=== PATIENT | female | born 1945 | race Caucasian/White ===

== ENCOUNTER 2017-06-23 08:26 | Day surgery (SDC) | payer MEDICARE, OTHER ==
[~2017-06-23] VITALS: Ht 157.5 cm; Wt 47.3 kg
[~2017-06-23 08:26] MED LIST: Cipro500 MG PO; FLUT44OIA INH; Flagyl250 MG PO; Keflex500 MG PO; LEVSOD100 PO; Norco 5-325 Ta1 EACH PO; PROG100 PO; Zofran Odt4 MG SL
== END 2017-06-23 11:03 | disposition home or self-care (01) ==
LOC: ORSCSDS 08:26
PROVIDERS: Internal Medicine Gastroenterology
PROC: 0DBK8ZX Excision of Ascending Colon, Via Natural or Artificial Opening Endoscopic, Diagnostic (ICD-10-PCS; principal; 2017-06-23 09:45)
DX: Z12.11 Encounter for screening for malignant neoplasm of colon (principal); D12.2 Benign neoplasm of ascending colon; K57.30 Diverticulosis of large intestine without perforation or abscess without bleeding; K63.89 Other specified diseases of intestine; E03.9 Hypothyroidism, unspecified; K64.8 Other hemorrhoids; Z79.899 Other long term (current) drug therapy
CPT/HCPCS: 88305; J7120

== ENCOUNTER 2018-01-11 06:15 | Day surgery (SDC) | payer MEDICARE, OTHER ==
[~2018-01-11] VITALS: Ht 157.5 cm; Wt 48.1 kg
[2018-01-11] MEDS ORDERED: GUAI600T33 (06:38)
[2018-01-11] MEDS ORDERED: AMOCLA500 (06:38)
== END 2018-01-11 08:35 | disposition home or self-care (01) ==
LOC: ORSCSDS 06:15
PROVIDERS: Ophthalmology
PROC: 08RJ3JZ Replacement of Right Lens with Synthetic Substitute, Percutaneous Approach (ICD-10-PCS; principal; 2018-01-11 07:30)
DX: H25.11 Age-related nuclear cataract, right eye (principal); J45.909 Unspecified asthma, uncomplicated; E03.9 Hypothyroidism, unspecified; Z79.899 Other long term (current) drug therapy
CPT/HCPCS: J2250; V2632

== ENCOUNTER 2020-11-23 09:07 | Emergency (ER) | payer OTHER ==
[~2020-11-23] VITALS: Ht 157.5 cm; Wt 49.0 kg
[~2020-11-23 09:07] MED LIST changes: +AMOCLA500; +GUAI600T33
[2020-11-23 10:30] LABS: Source, Urine Clean Catch
[2020-11-23 10:34] LABS: BASOPHILS ABSOLUTE AUTO 0.03 K/mm3 (0.00-0.23); BASOPHILS PERCENT AUTO 0 % (0-2); EOSINOPHILS ABSOLUTE AUTO 0.31 K/mm3 (0.00-0.68); EOSINOPHILS PERCENT AUTO 4 % (0-6); Hematocrit 38.5 % (33.0-51.0); Hemoglobin 12.5 g/dL (11.5-16.0); IMMATURE GRAN ABSOLUTE AUTO 0.02 K/mm3 (0.00-0.10); IMMATURE GRAN PERCENT AUTO 0 % (0-1); LYMPHOCYTES ABSOLUTE AUTO 1.31 K/mm3 (0.84-5.20); LYMPHOCYTES PERCENT AUTO 15 % (21-46); MONOCYTES ABSOLUTE AUTO 0.68 K/mm3 (0.16-1.47); MONOCYTES PERCENT AUTO 8 % (4-13); Mean Corpuscular HGB 29.8 pg (26.0-34.0); Mean Corpuscular HGB Conc 32.5 g/dL (31.5-36.5); Mean Corpuscular Volume 92 fL (80-100); Mean Platelet Volume 9.4 fL (9.1-12.4); NEUTROPHILS ABSOLUTE AUTO 6.53 K/mm3 (1.96-9.15); NEUTROPHILS PERCENT AUTO 74 % (41-73); Platelet Count 208 K/mm3 (150-400); RDW Coefficient Variation 13.2 % (11.7-14.2); RDW Standard Deviation 45.1 fL (35.1-46.3); Red Blood Cell Count 4.19 M/mm3 (3.80-5.20); White Blood Cell Count 8.88 K/mm3 (4.00-11.30)
[2020-11-23 10:34] LABS: Bilirubin, Urine Neg (Neg); Blood, Urine 2+ (Neg); Glucose Qualitative, Urine Neg (Neg); Ketones, Urine Neg (Neg); Leukocyte Esterase, Urine Neg (Neg); Nitrite, Urine Neg (Neg); Protein, Urine Neg (Neg); Specific Gravity, Urine 1.005 (1.003-1.022); Urobilinogen, Urine NORM (Normal)
[2020-11-23 10:43] LABS: Appearance, Urine Clear (Clear); Bacteria Rare /hpf; Color, Urine Yellow (P-Yellow); Red Blood Cells, Urine 0-2 /hpf (0-2); Squamous Epithelial Cells Few /hpf (Few); White Blood Cells, Urine 0-2 /hpf (0-5)
[2020-11-23 10:51] LABS: Alanine Aminotransfer (ALT/SGP 26 U/L (12-78); Albumin/Globulin Ratio 1.3 (0.8-1.8); Alk Phos 41 U/L (50-136); Anion Gap 7 mmol/L (6-16); Aspartate Aminotrans (AST/SGOT 19 U/L (12-37); Bilirubin, Total 0.5 mg/dL (0.1-1.0); Blood Urea Nitrogen 9 mg/dL (8-24); CO2, Blood 27 mmol/L (21-32); Chloride, Blood 107 mmol/L (98-108); Creatinine, Blood 0.53 mg/dL (0.40-1.00); Globulin, Blood 3.1 g/dL (2.2-4.0); Glomerular Filtration Rate >60 (60-); Glucose, Blood 101 mg/dL (70-99); Sodium, Blood 141 mmol/L (136-145); Total Protein, Blood 7.1 g/dL (6.4-8.2)
[2020-11-23] MEDS ORDERED: AMOCLA875 PO (11:27)
[2020-11-23] MEDS ORDERED: HYDR1TAB94 PO (11:38)
== END 2020-11-23 12:06 | disposition home or self-care (01) ==
LOC: ER 09:07
PROVIDERS: Physician Assistant
DX: K57.32 Diverticulitis of large intestine without perforation or abscess without bleeding (principal); Z79.899 Other long term (current) drug therapy
CPT/HCPCS: 36415; 74176; 80053; 81001; 83690; 85025; 99284-25; A9270

== ENCOUNTER → 2022-07-16 | Outpatient (CLI) | payer OTHER ==
[~2022-07-16] MED LIST changes: +AMOCLA875 PO; +HYDR1TAB94 PO
== END ==
LOC: LAB 09:57 → LAB SHORT 09:57
DX: R10.9 Unspecified abdominal pain (principal)
CPT/HCPCS: 87086

== ENCOUNTER → 2023-09-24 | Outpatient (CLI) | payer OTHER ==
[2023-09-24 11:09] LABS: BASOPHILS ABSOLUTE AUTO 0.03 K/mm3 (0.00-0.23); BASOPHILS PERCENT AUTO 0 % (0-2); EOSINOPHILS ABSOLUTE AUTO 0.29 K/mm3 (0.00-0.68); EOSINOPHILS PERCENT AUTO 4 % (0-6); Hematocrit 37.4 % (33.0-51.0); Hemoglobin 12.1 g/dL (11.5-16.0); IMMATURE GRAN ABSOLUTE AUTO 0.01 K/mm3 (0.00-0.10); IMMATURE GRAN PERCENT AUTO 0 % (0-1); LYMPHOCYTES ABSOLUTE AUTO 1.31 K/mm3 (0.84-5.20); LYMPHOCYTES PERCENT AUTO 16 % (21-46); MONOCYTES ABSOLUTE AUTO 0.51 K/mm3 (0.16-1.47); MONOCYTES PERCENT AUTO 6 % (4-13); Mean Corpuscular HGB 29.1 pg (26.0-34.0); Mean Corpuscular HGB Conc 32.4 g/dL (31.5-36.5); Mean Corpuscular Volume 90 fL (80-100); Mean Platelet Volume 9.8 fL (9.1-12.4); NEUTROPHILS ABSOLUTE AUTO 6.18 K/mm3 (1.96-9.15); NEUTROPHILS PERCENT AUTO 74 % (41-73); Platelet Count 198 K/mm3 (150-400); RDW Coefficient Variation 13.9 % (11.7-14.2); RDW Standard Deviation 45.4 fL (35.1-46.3); Red Blood Cell Count 4.16 M/mm3 (3.80-5.20); White Blood Cell Count 8.33 K/mm3 (4.00-11.30)
[2023-09-24 11:15] LABS: Albumin, Blood 3.5 g/dL (3.4-5.0); Albumin/Globulin Ratio 0.9 (0.8-1.8); Bilirubin, Total 0.5 mg/dL (0.1-1.0); Bun/Creatinine Ratio 8.6 (12.0-20.0); Calcium, Blood 8.9 mg/dL (8.5-10.1); Creatinine, Blood 0.58 mg/dL (0.40-1.00); Globulin, Blood 3.7 g/dL (2.2-4.0); Potassium, Blood 3.5 mmol/L (3.5-5.5); Total Protein, Blood 7.2 g/dL (6.4-8.2)
== END ==
LOC: LAB 11:02 → LAB SHORT 11:02
PROVIDERS: Family Medicine
DX: R10.9 Unspecified abdominal pain (principal); R42 Dizziness and giddiness
CPT/HCPCS: 80053; 83605; 85025

== ENCOUNTER → 2023-09-27 | Outpatient (CLI) | payer OTHER ==
[2023-09-27 12:46] LABS: Albumin, Blood 3.3 g/dL (3.4-5.0); Albumin/Globulin Ratio 0.9 (0.8-1.8); Bilirubin, Total 0.3 mg/dL (0.1-1.0); Bun/Creatinine Ratio 7.9 (12.0-20.0); Calcium, Blood 8.8 mg/dL (8.5-10.1); Creatinine, Blood 0.63 mg/dL (0.40-1.00); Globulin, Blood 3.5 g/dL (2.2-4.0); Potassium, Blood 3.5 mmol/L (3.5-5.5); Total Protein, Blood 6.8 g/dL (6.4-8.2)
[2023-09-27 12:49] LABS: BASOPHILS ABSOLUTE AUTO 0.03 K/mm3 (0.00-0.23); BASOPHILS PERCENT AUTO 0 % (0-2); Hemoglobin 12.2 g/dL (11.5-16.0); LYMPHOCYTES ABSOLUTE AUTO 1.07 K/mm3 (0.84-5.20); LYMPHOCYTES PERCENT AUTO 13 % (21-46); MONOCYTES ABSOLUTE AUTO 0.81 K/mm3 (0.16-1.47); MONOCYTES PERCENT AUTO 10 % (4-13); Mean Corpuscular HGB 29.4 pg (26.0-34.0); Mean Corpuscular Volume 89 fL (80-100); Mean Platelet Volume 9.8 fL (9.1-12.4); Platelet Count 201 K/mm3 (150-400); RDW Coefficient Variation 13.9 % (11.7-14.2); RDW Standard Deviation 45.2 fL (35.1-46.3); Red Blood Cell Count 4.15 M/mm3 (3.80-5.20); White Blood Cell Count 8.48 K/mm3 (4.00-11.30)
[2023-09-27 13:00] LABS: EOSINOPHILS ABSOLUTE AUTO 0.21 K/mm3 (0.00-0.68); EOSINOPHILS PERCENT AUTO 3 % (0-6); IMMATURE GRAN ABSOLUTE AUTO 0.03 K/mm3 (0.00-0.10); IMMATURE GRAN PERCENT AUTO 0 % (0-1); NEUTROPHILS ABSOLUTE AUTO 6.33 K/mm3 (1.96-9.15); NEUTROPHILS PERCENT AUTO 75 % (41-73)
== END ==
LOC: LAB SHORT 12:31 → LAB 12:31
PROVIDERS: Internal Medicine
DX: K57.92 Diverticulitis of intestine, part unspecified, without perforation or abscess without bleeding (principal)
CPT/HCPCS: 80053; 83690; 85025

== ENCOUNTER → 2023-09-27 | Outpatient (CLI) | payer OTHER ==
[2023-09-28 10:42] LABS: C DIFFICILE DNA POSITIVE (Negative)
== END ==
LOC: LAB SHORT 17:28 → LAB 17:28
PROVIDERS: Internal Medicine
DX: K57.92 Diverticulitis of intestine, part unspecified, without perforation or abscess without bleeding (principal)
CPT/HCPCS: 87324; 87493

== ENCOUNTER → 2023-10-26 | Outpatient (CLI) | payer OTHER ==
[2023-10-29 06:13] LABS: ADENOVIRUS F 40/41 Not Detected (Not Detected); ASTROVIRUS Not Detected (Not Detected); C DIFFICILE TOXIN A/B Detected (Not Detected); CRYPTOSPORIDIUM Not Detected (Not Detected); CYCLOSPORA CAYETANENSIS Not Detected (Not Detected); ENTAMOEBA HISTOLYTICA Not Detected (Not Detected); ENTEROAGGREGATIVE E COLI Not Detected (Not Detected); ENTEROPATHOGENIC E COLI Not Detected (Not Detected); ENTEROTOXIGENIC E COLI Not Detected (Not Detected); GIARDIA LAMBLIA Not Detected (Not Detected); NOROVIRUS GI/GII Not Detected (Not Detected); PLESIOMONAS SHIGELLOIDES Not Detected (Not Detected); ROTAVIRUS A Not Detected (Not Detected); SALMONELLA Not Detected (Not Detected); SAPOVIRUS Not Detected (Not Detected); SHIGA-TOXIN-PRODUCING E COLI Not Detected (Not Detected); SHIGELLA/ENTEROINVASIVE E COLI Not Detected (Not Detected); VIBRIO Not Detected (Not Detected); VIBRIO CHOLERAE Not Detected (Not Detected); YERSINIA ENTEROCOLITICA Not Detected (Not Detected)
== END | disposition home or self-care (01) ==
LOC: LAB SHORT 13:16 → LAB 13:16
PROVIDERS: Physician Assistant
DX: A04.71 Enterocolitis due to Clostridium difficile, recurrent (principal)
CPT/HCPCS: 87507

== ENCOUNTER 2024-12-19 18:06 | Inpatient (IN) | payer OTHER ==
[~2024-12-19] VITALS: Ht 157.5 cm; Wt 48.6 kg
[2024-12-19 19:32] LABS: BASOPHILS ABSOLUTE AUTO 0.03 K/mm3 (0.00-0.23); BASOPHILS PERCENT AUTO 0 % (0-2); EOSINOPHILS ABSOLUTE AUTO 0.16 K/mm3 (0.00-0.68); EOSINOPHILS PERCENT AUTO 2 % (0-6); Hematocrit 41.9 % (33.0-51.0); Hemoglobin 13.9 g/dL (11.5-16.0); IMMATURE GRAN ABSOLUTE AUTO 0.01 K/mm3 (0.00-0.10); IMMATURE GRAN PERCENT AUTO 0 % (0-1); LYMPHOCYTES ABSOLUTE AUTO 1.86 K/mm3 (0.84-5.20); LYMPHOCYTES PERCENT AUTO 21 % (21-46); MONOCYTES ABSOLUTE AUTO 0.48 K/mm3 (0.16-1.47); MONOCYTES PERCENT AUTO 5 % (4-13); Mean Corpuscular HGB Conc 33.2 g/dL (31.5-36.5); Mean Corpuscular Volume 89 fL (80-100); NEUTROPHILS ABSOLUTE AUTO 6.40 K/mm3 (1.96-9.15); NEUTROPHILS PERCENT AUTO 72 % (41-73); NRBC ABSOLUTE 0.00 K/mm3 (0.00-0.02); NRBC Auto 0.0 /100 WBC (0.0-0.2); Platelet Count 368 K/mm3 (150-400); RDW Coefficient Variation 13.2 % (11.7-14.2); RDW Standard Deviation 43.5 fL (35.1-46.3)
[2024-12-19 20:00] LABS: Alanine Aminotransfer (ALT/SGP 15.0 U/L (12-78); Albumin, Blood 3.5 g/dL (3.4-5.0); Albumin/Globulin Ratio 0.8 (0.8-1.8); Anion Gap 15.0 mmol/L (3-11); Aspartate Aminotrans (AST/SGOT 16.0 U/L (12-37); Bilirubin, Total 0.4 mg/dL (0.1-1.0); Blood Urea Nitrogen 7.0 mg/dL (8-24); CO2, Blood 21.0 mmol/L (21-32); Calcium, Blood 8.9 mg/dL (8.5-10.1); Chloride, Blood 100.0 mmol/L (98-108); Creatinine, Blood 0.53 mg/dL (0.40-1.00); Globulin, Blood 4.2 g/dL (2.2-4.0); Glucose, Blood 123.0 mg/dL (70-99); Potassium, Blood 3.7 mmol/L (3.5-5.5); Sodium, Blood 132.0 mmol/L (136-145); Total Protein, Blood 7.7 g/dL (6.4-8.2)
[2024-12-19 21:14] LABS: Source, Urine Clean Catch
[2024-12-19 21:22] LABS: Bilirubin, Urine Neg (Neg); Glucose Qualitative, Urine Neg (Neg); Ketones, Urine 3+ (Neg); Leukocyte Esterase, Urine Neg (Neg); Protein, Urine 1+ (Neg); Specific Gravity, Urine 1.010 (1.003-1.022); Urobilinogen, Urine NORM (Normal)
[2024-12-19 21:27] LABS: Color, Urine Pale Yellow (P-Yellow)
[2024-12-19 21:28] LABS: White Blood Cells, Urine 0-2 /hpf (0-5)
[2024-12-19] MEDS ORDERED: Morphine Sulfate 4 MG/1 ML Injection IV ONE (23:00)
[2024-12-19] MEDS ORDERED: Piperacillin/Tazobactam Sod 4.5 GM in NS 100 ML IV ONE (23:00)
[2024-12-19] MEDS ORDERED: FentaNYL Citrate 50 MCG/ML 2 ML Injection IV ONE (23:00)
[2024-12-19] MEDS ORDERED: Ondansetron HCl 2 MG / ML 2ML Vial IV ONE (23:00)
[2024-12-19] MEDS ORDERED: NS 1,000 ML IV SCH (23:00)
[2024-12-20] VITALS (18 sets, daily range): BP systolic 122–161; BP diastolic 63–130
[2024-12-20] MEDS ORDERED: NS 1,000 ML IV ONE (00:15)
[2024-12-20] MEDS ORDERED: FentaNYL Citrate 50 MCG/ML 2 ML Injection IV PRN ×3 (00:15→12:40)
[2024-12-20] MEDS ORDERED: Ondansetron HCl 2 MG / ML 2ML Vial IV PRN (00:15)
[2024-12-20] MEDS ORDERED: FOSAMAX70 MG PO (03:56)
[2024-12-20 04:42] LABS: BASOPHILS ABSOLUTE AUTO 0.02 K/mm3 (0.00-0.23); BASOPHILS PERCENT AUTO 0 % (0-2); EOSINOPHILS ABSOLUTE AUTO 0.01 K/mm3 (0.00-0.68); EOSINOPHILS PERCENT AUTO 0 % (0-6); Hematocrit 39.3 % (33.0-51.0); Hemoglobin 12.3 g/dL (11.5-16.0); IMMATURE GRAN ABSOLUTE AUTO 0.01 K/mm3 (0.00-0.10); IMMATURE GRAN PERCENT AUTO 0 % (0-1); LYMPHOCYTES ABSOLUTE AUTO 0.94 K/mm3 (0.84-5.20); LYMPHOCYTES PERCENT AUTO 16 % (21-46); MONOCYTES ABSOLUTE AUTO 0.31 K/mm3 (0.16-1.47); MONOCYTES PERCENT AUTO 5 % (4-13); Mean Corpuscular HGB Conc 31.3 g/dL (31.5-36.5); NEUTROPHILS ABSOLUTE AUTO 4.67 K/mm3 (1.96-9.15); NEUTROPHILS PERCENT AUTO 78 % (41-73); NRBC ABSOLUTE 0.00 K/mm3 (0.00-0.02); NRBC Auto 0.0 /100 WBC (0.0-0.2); Platelet Count 273 K/mm3 (150-400); RDW Coefficient Variation 13.4 % (11.7-14.2); RDW Standard Deviation 46.5 fL (35.1-46.3)
[2024-12-20 05:02] LABS: Mean Corpuscular Volume 94 fL (80-100)
[2024-12-20 05:22] LABS: Alanine Aminotransfer (ALT/SGP 13.0 U/L (12-78); Albumin, Blood 3.0 g/dL (3.4-5.0); Albumin/Globulin Ratio 0.9 (0.8-1.8); Anion Gap 14.0 mmol/L (3-11); Aspartate Aminotrans (AST/SGOT 11.0 U/L (12-37); Bilirubin, Total 0.2 mg/dL (0.1-1.0); Blood Urea Nitrogen 6.0 mg/dL (8-24); CO2, Blood 21.0 mmol/L (21-32); Calcium, Blood 7.8 mg/dL (8.5-10.1); Chloride, Blood 105.0 mmol/L (98-108); Creatinine, Blood 0.53 mg/dL (0.40-1.00); Globulin, Blood 3.4 g/dL (2.2-4.0); Glucose, Blood 117.0 mg/dL (70-99); Potassium, Blood 3.7 mmol/L (3.5-5.5); Sodium, Blood 136.0 mmol/L (136-145); Total Protein, Blood 6.4 g/dL (6.4-8.2)
--- NOTE | 2024-12-20 06:20 | NUR ---
SHIFT SUMMARY PT ER ADMIT THIS SHIFT FOR DIVERTICULITIS. PT REPORTS PAIN, N/V FOR THE PAST TWO DAYS. SHE REPORTS HER LAST BM WAS YESTERDAY BUT WAS VERY SMALL. SHE ENDORSES ABD TENDERNESS, AND INTERMITTENT SHARP PAINS THAT SHE REPORTS "COMES AND GOES". PAIN MANAGED PER EMAR. PT NPO, IVF INFUSING. PT AWAITING SURGICAL CONSULT AT THIS TIME. VITALS STABLE. ADMISSION COMPLETE. BED IN LOWEST POSITION, CALL LIGHT WITHIN REACH.
[2024-12-20] MEDS ORDERED: Fluticasone 0.05% Nasal Spray SCH (09:00)
--- NOTE | 2024-12-20 10:58 | NUR ---
[facility]
--- NOTE | 2024-12-20 11:25 | NUR ---
CENTRAL MONITOR TELE REMOVED SO DR BALL COULD BRITTENE ABD AND PREP COULD BE COMPLETED IN PRE-OP.
[2024-12-20] MEDS ORDERED: HYDROmorphone HCl/Pf 1MG SYR ONE (11:33)
[2024-12-20] MEDS ORDERED: Rocuronium Bromide 10 MG/ML 5ML Injection IV ONE ×2 (11:34→12:55)
[2024-12-20] MEDS ORDERED: Ampicillin Sod/Sulbactam Sod 3 GM in NS 100 ML IV SCH ×2 (11:35→20:00)
[2024-12-20] MEDS ORDERED: Bupivacaine 0.5% HCl 5 MG/ML 30MLVIAL ONE (11:38)
[2024-12-20] MEDS ORDERED: Phenylephrine HCl 100 MCG/ML-NS 10MLSYR (1MG/10ML) ONE (12:04)
[2024-12-20] MEDS ORDERED: HYDROmorphone HCl/Pf 1MG SYR IV PRN ×3 (12:35→16:30)
[2024-12-20] MEDS ORDERED: Metoclopramide HCl 5MG / ML 2ML Vial IV PRN (12:40)
[2024-12-20] MEDS ORDERED: Albuterol 2.5 MG/3 ML VIAL INH PRN (12:40)
[2024-12-20] MEDS ORDERED: Sugammadex Sodium 200 MG/2ML SDV (100 MG/ML) ONE (14:54)
[2024-12-20] MEDS ORDERED: FentaNYL Citrate 50 MCG/ML 2 ML Injection ONE (15:30)
--- NOTE | 2024-12-20 16:00 | NUR ---
POST OP RETURN TO SURGICAL UNIT VIA GOURNEY, SLID TO BED. DROWSY BUT PAINFUL. ABD SOFT & TENDER TO GENTLE TOUCH w/ ELLY MIDLINE w/ ~ 1 CM RED SPOT. L ABD w/ OSTOMY, BROWN LQ OUTPUT. NGT TO LIS, NO OUTPUT NOTED. TELE IN PLACE. VILLAVICENCIO TO GRAVITY, YELLOW URINE. LUNGS CLEAR, RA. TO SIDE.
[2024-12-20 22:12] LABS: Carcinoembryonic Antigen 0.8 ng/mL (0.0-3.0)
--- NOTE | 2024-12-21 04:34 | NUR ---
SHIFT SUMMARY PT S/P HEMICOLLECTOMY WITH OSTOMY PLACEMENT. NG PLACED IN OR. MIDLINE INCISION WITH ELLY, COMPRESSED. OSTOMY PRODUCING LIQUID BROWN STOOL. PT VERY PAINFUL WITH MOVEMENT AND COUGHING. PAIN MANAGED PER EMAR. NG WITH MINIMAL OUTPUT OVERNIGHT. IVF INFUSING, ANTIBIOTICS PER ORDERS. VITALS STABLE, PLAN OF CARE UNCHANGED. BED IN LOWEST POSITION, CALL LIGHT WITHIN REACH.
[2024-12-21 05:04] VITALS: BP 129/60
[2024-12-21 05:54] LABS: BASOPHILS ABSOLUTE AUTO 0.01 K/mm3 (0.00-0.23); BASOPHILS PERCENT AUTO 0 % (0-2); EOSINOPHILS ABSOLUTE AUTO 0.01 K/mm3 (0.00-0.68); EOSINOPHILS PERCENT AUTO 0 % (0-6); Hematocrit 35.1 % (33.0-51.0); Hemoglobin 11.5 g/dL (11.5-16.0); IMMATURE GRAN ABSOLUTE AUTO 0.03 K/mm3 (0.00-0.10); IMMATURE GRAN PERCENT AUTO 0 % (0-1); LYMPHOCYTES ABSOLUTE AUTO 0.99 K/mm3 (0.84-5.20); LYMPHOCYTES PERCENT AUTO 12 % (21-46); MONOCYTES ABSOLUTE AUTO 0.71 K/mm3 (0.16-1.47); MONOCYTES PERCENT AUTO 9 % (4-13); Mean Corpuscular HGB Conc 32.8 g/dL (31.5-36.5); Mean Corpuscular Volume 92 fL (80-100); NEUTROPHILS ABSOLUTE AUTO 6.65 K/mm3 (1.96-9.15); NEUTROPHILS PERCENT AUTO 79 % (41-73); NRBC ABSOLUTE 0.00 K/mm3 (0.00-0.02); NRBC Auto 0.0 /100 WBC (0.0-0.2); Platelet Count 322 K/mm3 (150-400); RDW Coefficient Variation 13.9 % (11.7-14.2); RDW Standard Deviation 47.4 fL (35.1-46.3)
[2024-12-21 06:56] LABS: Alanine Aminotransfer (ALT/SGP 14.0 U/L (12-78); Albumin, Blood 2.5 g/dL (3.4-5.0); Albumin/Globulin Ratio 0.8 (0.8-1.8); Anion Gap 10.0 mmol/L (3-11); Aspartate Aminotrans (AST/SGOT 22.0 U/L (12-37); Bilirubin, Total 0.3 mg/dL (0.1-1.0); Blood Urea Nitrogen 6.0 mg/dL (8-24); CO2, Blood 25.0 mmol/L (21-32); Calcium, Blood 7.5 mg/dL (8.5-10.1); Chloride, Blood 107.0 mmol/L (98-108); Creatinine, Blood 0.56 mg/dL (0.40-1.00); Globulin, Blood 3.0 g/dL (2.2-4.0); Glucose, Blood 105.0 mg/dL (70-99); Potassium, Blood 4.2 mmol/L (3.5-5.5); Sodium, Blood 138.0 mmol/L (136-145); Total Protein, Blood 5.5 g/dL (6.4-8.2)
[2024-12-21 07:05] VITALS: BP 157/75
--- NOTE | 2024-12-21 08:09 | NUR ---
NGT REMOVED BY DR BALL. ICE WATER GIVEN & ENCOURAGED TO TAKE IN SIPS SLOWLY.
[2024-12-21] MEDS ORDERED: Enoxaparin 40 MG/0.4 ML SYR SC SCH (09:00)
[2024-12-21] MEDS ORDERED: Ampicillin Sod/Sulbactam Sod 3 GM in NS 100 ML IV SCH (14:00)
[2024-12-21 16:11] VITALS: BP 115/56
--- NOTE | 2024-12-21 18:37 | NUR ---
SHIFT SUMMARY SHE WAS ABLE TO MEET ALL HER GOALS TODAY. USES IS W/O SPONT PROMPTING, UP TO CHAIR FOR ~ 2 HRS, & TOLERATING SIPS OF WATER. PAIN IS REASONABLY CONTROLLED. SLEEPS IN BETWEEN ACTIVITIES. PLEASANT & COOPERATIVE.
[2024-12-21 19:34] VITALS: BP 144/73
[2024-12-22 04:28] VITALS: BP 159/84
[2024-12-22 05:36] LABS: BASOPHILS ABSOLUTE AUTO 0.02 K/mm3 (0.00-0.23); BASOPHILS PERCENT AUTO 0 % (0-2); EOSINOPHILS ABSOLUTE AUTO 0.18 K/mm3 (0.00-0.68); EOSINOPHILS PERCENT AUTO 3 % (0-6); Hematocrit 33.0 % (33.0-51.0); Hemoglobin 10.8 g/dL (11.5-16.0); IMMATURE GRAN ABSOLUTE AUTO 0.02 K/mm3 (0.00-0.10); IMMATURE GRAN PERCENT AUTO 0 % (0-1); LYMPHOCYTES ABSOLUTE AUTO 0.98 K/mm3 (0.84-5.20); LYMPHOCYTES PERCENT AUTO 14 % (21-46); MONOCYTES ABSOLUTE AUTO 0.53 K/mm3 (0.16-1.47); MONOCYTES PERCENT AUTO 8 % (4-13); Mean Corpuscular HGB Conc 32.7 g/dL (31.5-36.5); Mean Corpuscular Volume 92 fL (80-100); NEUTROPHILS ABSOLUTE AUTO 5.22 K/mm3 (1.96-9.15); NEUTROPHILS PERCENT AUTO 75 % (41-73); NRBC ABSOLUTE 0.00 K/mm3 (0.00-0.02); NRBC Auto 0.0 /100 WBC (0.0-0.2); Platelet Count 296 K/mm3 (150-400); RDW Coefficient Variation 14.0 % (11.7-14.2); RDW Standard Deviation 47.8 fL (35.1-46.3)
--- NOTE | 2024-12-22 05:54 | NUR ---
NOC SUMMARY- PT PAIN MANAGED WELL. PT ABLE TO REST DURING SHIFT. NO STOOLING NOTED IN OSTOMY. VILLAVICENCIO DRAINING TO GRAVITY. ELLY IS COMPRESSED W/ SCANT SHADOWING. TOLERATING SIPS OF WATER ONLY. CALL LIGHT IN REACH.
[2024-12-22 06:12] LABS: Anion Gap 10.0 mmol/L (3-11); Blood Urea Nitrogen 5.0 mg/dL (8-24); CO2, Blood 25.0 mmol/L (21-32); Calcium, Blood 7.7 mg/dL (8.5-10.1); Chloride, Blood 105.0 mmol/L (98-108); Creatinine, Blood 0.49 mg/dL (0.40-1.00); Glucose, Blood 81.0 mg/dL (70-99); Magnesium, Blood 2.1 mg/dL (1.6-2.4); Phosphorus, Blood 1.0 mg/dL (2.5-4.9); Potassium, Blood 3.6 mmol/L (3.5-5.5); Sodium, Blood 136.0 mmol/L (136-145)
[2024-12-22 07:49] VITALS: BP 153/86
[2024-12-22] MEDS ORDERED: HYDROcodone 5-APAP 325 TAB PO PRN (08:25)
[2024-12-22] MEDS ORDERED: D5W-1/2NS KCl 20mEq 1,000 ML IV SCH (08:25)
[2024-12-22] MEDS ORDERED: Potassium Phosphate Dibasic 30 MM in Dextrose 5% 500 ML IV STA (08:30)
[2024-12-22] MEDS ORDERED: HYDROmorphone HCl/Pf 1MG SYR IV PRN (09:20)
--- NOTE | 2024-12-22 10:10 | NUR ---
PATIENT ALERT X4, FAMILY IN ROOM. COLOSTOMY PRODUCING SMALL AMOUT OF BROWN BROWN AND RED LIQUID STOOL, STOMA REMAINS BEEFY RED ELLY MIDLINE IS COMPRESSED WITH SLIGHT SHADING ON THE LEFT LOWER. VILLAVICENCIO DRAINING YELLOW URINE. PAIN MANAGED WITH PRN'S.
[2024-12-22] MEDS ORDERED: Potassium Phosphate Dibasic 15 MM in Dextrose 5% 250 ML IV SCH (13:30)
[2024-12-22 14:35] VITALS: BP 126/72
[2024-12-22 19:13] VITALS: BP 125/64
[2024-12-23 04:07] VITALS: BP 127/76
--- NOTE | 2024-12-23 04:33 | NUR ---
SHIFT SUMMARY; PATIENT SLEPT IN LONG INTERVALS, MEDICATED FOR PAIN TWICE. VILLAVICENCIO REMOVED EARLY THIS MORNING. COLOSTOMY WORKING WELL. IV FLUIDS D51/2NS WITH 20 MEQ AT 75/HR .
[2024-12-23 05:13] LABS: Anion Gap 5.0 mmol/L (3-11); Blood Urea Nitrogen 3.0 mg/dL (8-24); CO2, Blood 30.0 mmol/L (21-32); Calcium, Blood 7.5 mg/dL (8.5-10.1); Chloride, Blood 103.0 mmol/L (98-108); Creatinine, Blood 0.46 mg/dL (0.40-1.00); Glucose, Blood 116.0 mg/dL (70-99); Magnesium, Blood 2.1 mg/dL (1.6-2.4); Phosphorus, Blood 2.0 mg/dL (2.5-4.9); Potassium, Blood 4.1 mmol/L (3.5-5.5); Sodium, Blood 134.0 mmol/L (136-145)
[2024-12-23 07:35] VITALS: BP 134/74
[2024-12-23] MEDS ORDERED: Sodium Phosphate 15 MM in Dextrose 5% 250 ML IV STA (08:22)
[2024-12-23 14:44] VITALS: BP 109/76
--- NOTE | 2024-12-23 17:44 | NUR ---
SUMMARY- PT A/O X4, FORGETFUL TO DETAILS AND FUZZY FROM EFFECTS OF NARCOTIC MEDS- FAMILY IN ROOM ALL DAY ASSISTING PT WITH ADL'S. PT STATES INTERMITTANT PAIN IN ABD, CONTROLLED WITH NORCO 1, APPROX Q3-4 DURING THE DAY. PT ADVANCED TO REG DIET FOR LUNCH AND TOLERATING FOOD AND FLUIDS WELL. SAUD DC'D 0500, VOIDING WITHOUT DIFFICULTY. AMBULATED IN HALLWAY WALKER SBA, CIRCLED THE UNIT APPROX 4X THIS SHIFT. PT HAS CONT IVF RUNNING UNTIL FLUID INTAKE PICKS UP. STOMA APPEARS RED AND BEEFY. RELEASED AIR X2, AND 75ML OF LIQ BROWN BM. AREA AROUND LATERAL APPLIEANCE RED WITH BLISTER APPEARING UNDER THE ADHESIVE. ELLY DRAIN IN USE. WILL REPORT TO RUI BARKER
[2024-12-23 20:08] VITALS: BP 146/78
[2024-12-24 02:41] VITALS: BP 171/84
[2024-12-24 06:26] LABS: BASOPHILS ABSOLUTE AUTO 0.02 K/mm3 (0.00-0.23); BASOPHILS PERCENT AUTO 1 % (0-2); EOSINOPHILS ABSOLUTE AUTO 0.33 K/mm3 (0.00-0.68); EOSINOPHILS PERCENT AUTO 8 % (0-6); Hematocrit 31.3 % (33.0-51.0); Hemoglobin 10.2 g/dL (11.5-16.0); IMMATURE GRAN ABSOLUTE AUTO 0.01 K/mm3 (0.00-0.10); IMMATURE GRAN PERCENT AUTO 0 % (0-1); LYMPHOCYTES ABSOLUTE AUTO 0.92 K/mm3 (0.84-5.20); LYMPHOCYTES PERCENT AUTO 22 % (21-46); MONOCYTES ABSOLUTE AUTO 0.38 K/mm3 (0.16-1.47); MONOCYTES PERCENT AUTO 9 % (4-13); Mean Corpuscular HGB Conc 32.6 g/dL (31.5-36.5); Mean Corpuscular Volume 92 fL (80-100); NEUTROPHILS ABSOLUTE AUTO 2.56 K/mm3 (1.96-9.15); NEUTROPHILS PERCENT AUTO 61 % (41-73); NRBC ABSOLUTE 0.00 K/mm3 (0.00-0.02); NRBC Auto 0.0 /100 WBC (0.0-0.2); Platelet Count 327 K/mm3 (150-400); RDW Coefficient Variation 13.6 % (11.7-14.2); RDW Standard Deviation 46.0 fL (35.1-46.3)
--- NOTE | 2024-12-24 06:31 | NUR ---
SHIFT SUMMARY POD 4 SIGMOIDECTOMY/COLOSTOMY PLACEMENT. PT TOLERATING REGULAR DIET. REPORTS ABDOMINAL PAIN INCREASED THROUGHOUT SHIFT. MEDICATED PER EMAR AND AMBULATED IN HALLWAY. BOWEL TONES HYPERACTIVE WITH MODERATE ABD DISTENTION AT END OF SHIFT. PT PASSING FLATUS, MINIMAL LIQUID BROWN STOOL IN OSTOMY. PT A&O X4 BUT BECOMES CONFUSED AFTER ADMINISTRATION OF PAIN MEDICATION. REPORTS HEARING MUSIC AND RAIN AFTER RECEIVING PAIN MEDICATION. MIDLINE ELLY DRESSING UNCHANGED THROUGHOUT SHIFT. CALL LIGHT WITHIN REACH. CARE PLAN ONGOING.
[2024-12-24 06:51] LABS: Alanine Aminotransfer (ALT/SGP 14.0 U/L (12-78); Albumin, Blood 2.2 g/dL (3.4-5.0); Albumin/Globulin Ratio 0.7 (0.8-1.8); Anion Gap 8.0 mmol/L (3-11); Aspartate Aminotrans (AST/SGOT 16.0 U/L (12-37); Bilirubin, Total 0.2 mg/dL (0.1-1.0); Blood Urea Nitrogen 2.0 mg/dL (8-24); CO2, Blood 27.0 mmol/L (21-32); Calcium, Blood 7.7 mg/dL (8.5-10.1); Chloride, Blood 105.0 mmol/L (98-108); Creatinine, Blood 0.47 mg/dL (0.40-1.00); Globulin, Blood 3.2 g/dL (2.2-4.0); Glucose, Blood 112.0 mg/dL (70-99); Magnesium, Blood 2.2 mg/dL (1.6-2.4); Phosphorus, Blood 2.8 mg/dL (2.5-4.9); Potassium, Blood 3.8 mmol/L (3.5-5.5); Sodium, Blood 136.0 mmol/L (136-145); Total Protein, Blood 5.4 g/dL (6.4-8.2)
[2024-12-24 07:28] VITALS: BP 170/94
[2024-12-24 09:59] VITALS: BP 142/84
[2024-12-24 16:40] VITALS: BP 178/85
--- NOTE | 2024-12-24 16:40 | NUR ---
SHIFT SUMMARY ADMITTED ON 12/20 FOR DIVERTICULITIS. POD 4 COLECTOMY w/OSTOMY PLACEMENT. A&O x4, VSS - HTN NOTED POST AMBULATION. SBP 140-160'S w/REST, HRR. MIDLINE ABD INCISION w/DARRON, NO DRAINAGE. MEDIPORE DRESSING PLACED TODAY DUE TO ELLY ADHESIVE REDNESS & BLISTERING ON SKIN, C/D/I. LLQ OSTOMY - WNL, MINIMAL OUTPUT TODAY, PASSING GAS. OSTOMY APPLIANCE CHANGED, REMAINS C/D/I. STATES GAS PAIN, CONTROLLED WELL w/PAIN MEDS & GAS-X PER EMAR. IND IN ROOM, FAMILY ASSISTING w/CARE PRN. WALKED HALLWAY FREQUENTLY TODAY w/FAMILY. CALL LIGHT WITHIN REACH.
[2024-12-24 16:55] VITALS: BP 161/74
[2024-12-24 19:10] VITALS: BP 134/74
[2024-12-25 03:27] VITALS: BP 190/88
[2024-12-25 04:25] VITALS: BP 145/85
[2024-12-25 04:26] VITALS: BP 145/85
[2024-12-25 04:44] LABS: BASOPHILS ABSOLUTE AUTO 0.02 K/mm3 (0.00-0.23); BASOPHILS PERCENT AUTO 1 % (0-2); EOSINOPHILS ABSOLUTE AUTO 0.34 K/mm3 (0.00-0.68); EOSINOPHILS PERCENT AUTO 9 % (0-6); Hematocrit 33.2 % (33.0-51.0); Hemoglobin 10.6 g/dL (11.5-16.0); IMMATURE GRAN ABSOLUTE AUTO 0.01 K/mm3 (0.00-0.10); IMMATURE GRAN PERCENT AUTO 0 % (0-1); LYMPHOCYTES ABSOLUTE AUTO 0.93 K/mm3 (0.84-5.20); LYMPHOCYTES PERCENT AUTO 25 % (21-46); MONOCYTES ABSOLUTE AUTO 0.34 K/mm3 (0.16-1.47); MONOCYTES PERCENT AUTO 9 % (4-13); Mean Corpuscular HGB Conc 31.9 g/dL (31.5-36.5); Mean Corpuscular Volume 92 fL (80-100); NEUTROPHILS ABSOLUTE AUTO 2.09 K/mm3 (1.96-9.15); NEUTROPHILS PERCENT AUTO 56 % (41-73); NRBC ABSOLUTE 0.00 K/mm3 (0.00-0.02); NRBC Auto 0.0 /100 WBC (0.0-0.2); Platelet Count 356 K/mm3 (150-400); RDW Coefficient Variation 13.5 % (11.7-14.2); RDW Standard Deviation 46.2 fL (35.1-46.3)
[2024-12-25 05:20] LABS: Magnesium, Blood 2.2 mg/dL (1.6-2.4)
[2024-12-25 05:21] LABS: Alanine Aminotransfer (ALT/SGP 16.0 U/L (12-78); Albumin, Blood 2.2 g/dL (3.4-5.0); Albumin/Globulin Ratio 0.7 (0.8-1.8); Anion Gap 7.0 mmol/L (3-11); Aspartate Aminotrans (AST/SGOT 19.0 U/L (12-37); Bilirubin, Total 0.2 mg/dL (0.1-1.0); Blood Urea Nitrogen 3.0 mg/dL (8-24); CO2, Blood 29.0 mmol/L (21-32); Calcium, Blood 8.4 mg/dL (8.5-10.1); Chloride, Blood 105.0 mmol/L (98-108); Creatinine, Blood 0.49 mg/dL (0.40-1.00); Globulin, Blood 3.3 g/dL (2.2-4.0); Glucose, Blood 99.0 mg/dL (70-99); Phosphorus, Blood 3.2 mg/dL (2.5-4.9); Potassium, Blood 4.0 mmol/L (3.5-5.5); Sodium, Blood 137.0 mmol/L (136-145); Total Protein, Blood 5.5 g/dL (6.4-8.2)
--- NOTE | 2024-12-25 05:34 | NUR ---
SHIFT SUMMARY POD 5 COLECTOMY WITH OSTOMY PLACEMENT. MIDLINE MEDIPORE DRESSING C/D/I. PT C/O INCREASED PAIN WITH ABDOMINAL DISCOMFORT DURING SHIFT. MEDICATED PER EMAR AND AMBULATED HALLS. ZERO STOOL DRAINAGE THIS SHIFT. BOWEL TONES HYPERACTIVE THIS MORNING WITH MODERATE ABDOMINAL DISTENTION. PT TOLERATING DIET AND DENIES NAUSEA. CALL LIGHT WITHIN REACH. CARE PLAN ONGOING.
[2024-12-25 06:55] VITALS: BP 146/84
[2024-12-25] MEDS ORDERED: HYDR1TAB94 PO (09:46)
--- NOTE | 2024-12-25 12:37 | NUR ---
PT VOIDING. GOOD PAIN CONTROL. MED REC IN PROGRESS. PLAN FOR DISCHARGE HOME.
[2024-12-25] MEDS ORDERED: ONDA4ODT MM (13:33)
[2024-12-25] MEDS ORDERED: SIME80CH PO (13:33)
--- NOTE | 2024-12-25 13:58 | NUR ---
dc instruct reviewed. stated understanding. discharged to pov with printed instruct.
== END 2024-12-25 13:58 | disposition home or self-care (01) | DRG 330 ==
LOC: ER 18:06 → MEDS 12-20 00:14 → SURS 12-20 00:14
PROVIDERS: Family Medicine; Student in an Organized Health Care Education/Training Program; Surgery; ADMIT Internal Medicine
PROC: 3E03329 Introduction of Other Anti-infective into Peripheral Vein, Percutaneous Approach (ICD-10-PCS; 2024-12-19)
PROC: 0DBN0ZZ Excision of Sigmoid Colon, Open Approach (ICD-10-PCS; 2024-12-20)
PROC: 0D9670Z Drainage of Stomach with Drainage Device, Via Natural or Artificial Opening (ICD-10-PCS; 2024-12-20)
PROC: 0D1N0Z4 Bypass Sigmoid Colon to Cutaneous, Open Approach (ICD-10-PCS; principal; 2024-12-20 12:00)
DX: K57.32 Diverticulitis of large intestine without perforation or abscess without bleeding (principal); E87.1 Hypo-osmolality and hyponatremia; K56.699 Other intestinal obstruction unspecified as to partial versus complete obstruction; R73.9 Hyperglycemia, unspecified; E89.0 Postprocedural hypothyroidism; E83.39 Other disorders of phosphorus metabolism; Z90.721 Acquired absence of ovaries, unilateral; Z98.890 Other specified postprocedural states; Z87.891 Personal history of nicotine dependence; Z79.51 Long term (current) use of inhaled steroids; Z79.890 Hormone replacement therapy; Z79.899 Other long term (current) drug therapy
CPT/HCPCS: 36415; 74177; 80048; 80053; 81001; 82378; 83690; 83735; 83880; 84100; 84484; 85025; 86301; 86304; 88307; 93005; 93010; 94760; 96365; 96375; 97116; 97161; 97165; 97530; 99285-25; A9270; J0295; J1171; J1650; J2371; J2405; J2543; J2704; J3010; J7030; J7060; J7120; Q9967